=== PATIENT | male | born 1980 | race African-American/Black ===

== ENCOUNTER 2023-09-23 23:29 | Emergency (ER) | payer OTHER ==
[~2023-09-23] VITALS: Ht 175.3 cm; Wt 90.7 kg
[2023-09-24] MEDS ORDERED: AMOX-430 PO (00:13)
[2023-09-24] MEDS ORDERED: TDAP DIPH,PERTUSS,TET VAC/PF 0.5 ML DISP.SYRIN IM ONE (00:18)
[2023-09-24] MEDS ORDERED: AMOXICILLIN-CLAVUL 875-125MG TABLET ONE (00:18)
[2023-09-24] MEDS: AMOXICILLIN-CLAVUL 875-125MG TABLET PO ONE (00:23)
[2023-09-24] MEDS: TDAP DIPH,PERTUSS,TET VAC/PF 0.5 ML DISP.SYRIN IM ONE (00:23)
[2023-09-24 00:27] VITALS: BP 128/66; TEMP 97.8; O2SAT 98
== END 2023-09-24 00:27 | disposition home or self-care (01) ==
LOC: ER 23:42
DX: S61.052A Open bite of left thumb without damage to nail, initial encounter (principal); S61.051A Open bite of right thumb without damage to nail, initial encounter; S61.251A Open bite of left index finger without damage to nail, initial encounter; W55.01XA Bitten by cat, initial encounter; Y93.89 Activity, other specified; Y92.89 Other specified places as the place of occurrence of the external cause; Y99.8 Other external cause status
CPT/HCPCS: 90715; A4606; A4663